=== PATIENT | female | born 1955 | race Caucasian/White ===

== ENCOUNTER 2023-04-26 11:26 | Day surgery (SDC) | payer MEDICARE, BC ==
[2023-04-22 11:33] LABS: BASOPHILS # (AUTO) 0.1 X10'3 (0-0.2); BASOPHILS % (AUTO) 1.2 % (0-1); EOSINOPHILS # (AUTO) 0.4 X10'3 (0-0.9); EOSINOPHILS % (AUTO) 4.6 % (0-6); HEMOGLOBIN 13.6 g/dl (12.0-16.0); LYMPHOCYTES # (AUTO) 1.2 X10'3 (1.1-4.8); LYMPHOCYTES % (AUTO) 13.3 % (21-51); MEAN CORPUSCULAR HEMOGLOBIN 31.4 PG (27.0-31.0); MEAN CORPUSCULAR HGB CONC 33.3 g/dL (33.0-36.5); MEAN CORPUSCULAR VOLUME 94.3 FL (78-98); MEAN PLATELET VOLUME 9.7 FL (7.4-10.4); MONOCYTES # (AUTO) 0.5 X10'3 (0-0.9); MONOCYTES % (AUTO) 5.4 % (2-12); NEUTROPHILS # (AUTO) 7.1 X10'3 (1.8-7.7); NEUTROPHILS % (AUTO) 75.5 % (42-75); PLATELET COUNT 178 X10'3 (140-440); RED BLOOD COUNT 4.35 X10'6 (4.20-5.60); RED CELL DISTRIBUTION WIDTH 14.1 % (11.5-14.5); WHITE BLOOD COUNT 9.4 X10'3 (4.5-11.0)
[2023-04-22 11:45] LABS: APTT 32 SECONDS (22-32); INR 1.1 INR; PROTHROMBIN TIME 11.4 SECONDS (9.0-12.0)
[2023-04-22 11:49] LABS: ALBUMIN 4.1 G/DL (3.4-5.0); ANION GAP 11 (8-16); BLOOD UREA NITROGEN 41 MG/DL (7-18); BUN/CREATININE RATIO 21.8 (10.0-20.0); CHLORIDE 105 MMOL/L (99-107); CHOL/HDL RATIO 2.7 (0.00-4.99); CHOLESTEROL 217 MG/DL (0-200); CREATININE 1.88 MG/DL (0.40-0.90); GLUCOSE 95 MG/DL (70-104); HDL CHOLESTEROL 80 MG/DL (35-60); LDL CHOLESTEROL 115 MG/DL (50-100); SODIUM 140 MMOL/L (135-145); TOTAL CARBON DIOXIDE 24.4 MMOL/L (24-32); TRIGLYCERIDES 71 MG/DL (20-135); eGFR 27 ML/MIN
[2023-04-22 12:00] LABS: POTASSIUM 5.2 MMOL/L (3.5-5.1)
[~2023-04-26] VITALS: Ht 172.7 cm; Wt 72.5 kg
[2023-04-26] VITALS (11 sets, daily range): BP systolic 130–154; BP diastolic 47–93; PULSE 45–53; RESP 16–18; TEMP 98.3; O2SAT 97–99
[~2023-04-26 11:26] MED LIST: ASPI-1265 PO; ATOR20TA66 PO; COR3.125T PO; SACU1TAB PO
[2023-04-26] MEDS ORDERED: normal saline 1,000 ML IV SCH (12:05)
[2023-04-26] MEDS ORDERED: LORazepam 0.5 MG tablet PO PRN (12:05)
[2023-04-26] MEDS ORDERED: diphenhydrAMINE 25mg capsule PO PRN (12:05)
[2023-04-26] MEDS ORDERED: nitroGLYCERIN 500mcg/5mL D5W 5 ML IV ONE (12:32)
[2023-04-26] MEDS ORDERED: iohexol 350MG/ML 100ml bottle IV ONE (12:32)
[2023-04-26] MEDS ORDERED: verapamil 2.5 mg/ml inj IV ONE (12:32)
[2023-04-26] MEDS ORDERED: LIDOcaine 1% (10mg/ml) 2ml vial ONE (12:32)
[2023-04-26] MEDS ORDERED: midazolam 1 mg/ML 2ml injection ONE (12:32)
[2023-04-26] MEDS ORDERED: iohexol 350 MG/ML 50ML vial IV ONE (12:32)
[2023-04-26] MEDS ORDERED: fentaNYL/PF 50MCG/1 ML 2ML syringe ONE (12:32)
[2023-04-26] MEDS ORDERED: heparin 1,000unit/ml 10ml vial 10 ML ONE (12:33)
[2023-04-26] MEDS ORDERED: CARV-50 PO (12:48)
[2023-04-26] MEDS ORDERED: SPIR25TA PO (12:48)
[2023-04-26] MEDS ORDERED: ASPI81TA52 PO (12:48)
[2023-04-26] MEDS ORDERED: DAPA10TA PO (12:48)
[2023-04-26] MEDS ORDERED: SACU1TAB PO (12:48)
[2023-04-26] MEDS ORDERED: ATOR20TA PO (12:48)
[2023-04-26] MEDS ORDERED: LIDOcaine 1% 30ml preserv. free vial ONE (13:12)
[2023-04-26] MEDS ORDERED: OXAZEpam 15mg capsule PO PRN (14:45)
[2023-04-26] MEDS ORDERED: proCHLORperazine 10 MG/2 ml inj IV PRN (14:45)
[2023-04-26] MEDS ORDERED: HYDROcodone/acetaminophen 5mg/325mg tablet PO PRN (14:45)
[2023-04-26] MEDS ORDERED: ondansetron/PF 4mg/2ml inj IV PRN (14:45)
[2023-04-26] MEDS ORDERED: nitroGLYCERIN 0.4mg SUBLingual tab SL PRN (14:45)
[2023-04-26] MEDS ORDERED: HYDROcodone/acetaminophen 10/325mg tab PO PRN (14:45)
== END 2023-04-26 18:45 | disposition home or self-care (01) ==
LOC: SSTAY O 11:26
PROVIDERS: ATTEND Student in an Organized Health Care Education/Training Program
DX: I11.0 Hypertensive heart disease with heart failure (principal); I50.20 Unspecified systolic (congestive) heart failure; I42.9 Cardiomyopathy, unspecified; I34.0 Nonrheumatic mitral (valve) insufficiency; E78.5 Hyperlipidemia, unspecified; J44.9 Chronic obstructive pulmonary disease, unspecified; Z79.82 Long term (current) use of aspirin; Z79.899 Other long term (current) drug therapy; Z82.49 Family history of ischemic heart disease and other diseases of the circulatory system
CPT/HCPCS: 36415; 80048; 80061; 85025; 85610; 85730; 93005; 93458; 99152; 99153; J1644; J2250; J3010; J3490; J7030; Q9967; A6258; A6402; C1760; C1894

== ENCOUNTER 2023-05-13 16:05 | Emergency (ER) | payer MEDICARE, BC ==
[~2023-05-13] VITALS: Ht 172.7 cm; Wt 74.6 kg
[~2023-05-13 16:05] MED LIST changes: -ASPI-1265 PO; +ASPI81TA52 PO; +ATOR20TA PO; -ATOR20TA66 PO; +CARV-50 PO; -COR3.125T PO; +DAPA10TA PO; +SPIR25TA PO
[2023-05-13 16:11] VITALS: TEMP 98.6
[2023-05-13 16:51] LABS: BASOPHILS % (AUTO) 0.1 % (0-1); EOSINOPHILS # (AUTO) 0.6 X10'3 (0-0.9); EOSINOPHILS % (AUTO) 10.6 % (0-6); HEMATOCRIT 33.5 % (35.0-45.0); HEMOGLOBIN 11.5 g/dl (12.0-16.0); LYMPHOCYTES # (AUTO) 0.9 X10'3 (1.1-4.8); LYMPHOCYTES % (AUTO) 17.1 % (21-51); MEAN CORPUSCULAR HEMOGLOBIN 31.5 PG (27.0-31.0); MEAN CORPUSCULAR HGB CONC 34.3 g/dL (33.0-36.5); MEAN CORPUSCULAR VOLUME 91.9 FL (78-98); MEAN PLATELET VOLUME 8.8 FL (7.4-10.4); MONOCYTES # (AUTO) 0.4 X10'3 (0-0.9); MONOCYTES % (AUTO) 7.5 % (2-12); NEUTROPHILS # (AUTO) 3.6 X10'3 (1.8-7.7); NEUTROPHILS % (AUTO) 64.7 % (42-75); PLATELET COUNT 198 X10'3 (140-440); RED BLOOD COUNT 3.64 X10'6 (4.20-5.60); RED CELL DISTRIBUTION WIDTH 13.4 % (11.5-14.5); WHITE BLOOD COUNT 5.5 X10'3 (4.5-11.0)
[2023-05-13 17:13] LABS: ALBUMIN 3.7 G/DL (3.4-5.0); ANION GAP 15 (8-16); BLOOD UREA NITROGEN 63 MG/DL (7-18); BUN/CREATININE RATIO 24.7 (10.0-20.0); CALCIUM 8.9 MG/DL (8.5-10.1); CHLORIDE 107 MMOL/L (99-107); CREATININE 2.55 MG/DL (0.40-0.90); GLUCOSE 123 MG/DL (70-104); POTASSIUM 5.1 MMOL/L (3.5-5.1); SODIUM 142 MMOL/L (135-145); TOTAL CARBON DIOXIDE 20.4 MMOL/L (24-32); eCRCL 21 ML/MIN; eGFR 19 ML/MIN
[2023-05-13 19:46] VITALS: BP 172/71; PULSE 57; RESP 11; O2SAT 99
[2023-05-15] MEDS ORDERED: KAY15L PO (16:47)
== END 2023-05-13 20:27 | disposition home or self-care (01) ==
LOC: ER 16:06
DX: M25.512 Pain in left shoulder (principal); R94.4 Abnormal results of kidney function studies; I50.9 Heart failure, unspecified; J44.9 Chronic obstructive pulmonary disease, unspecified; Z79.899 Other long term (current) drug therapy; Z79.82 Long term (current) use of aspirin
CPT/HCPCS: 36415; 71045; 80048; 84484; 85025; 93005; 93308; 99285